=== PATIENT | female | born 1965 | race African-American/Black ===

== ENCOUNTER 2020-04-26 14:06 | Emergency (ER) | payer OTHER ==
[~2020-04-26] VITALS: Ht 167.6 cm; Wt 74.4 kg
[2020-04-26] MEDS ORDERED: CEPH500T PO (14:23)
--- NOTE | 2020-04-26 14:33 | NUR ---
Patient discharged to home in stable condition. Written and verbal after care instructions given. Patient verbalizes understanding of instructions. Stressed follow up or return to ER for worsening s/s.
== END 2020-04-26 14:33 | disposition home or self-care (01) ==
LOC: ER 14:06
DX: L72.3 Sebaceous cyst (principal)
CPT/HCPCS: A4663